=== PATIENT | male | born 1960 | race Caucasian/White ===

== ENCOUNTER 2018-06-18 19:46 | Emergency (ER) | payer MEDICARE, BC ==
--- NOTE | 2018-06-18 19:47 | ER Report ---
History and Physical Time Seen By MD: 19:47 HPI/ROS CHIEF COMPLAINT: Headache, altered mental status, chest tightness HISTORY OF PRESENT ILLNESS: 57-year-old male with a known history of coronary artery disease and history of neck surgery on chronic pain medication cured for eye Dr. Geronimo in [place]. Was seen in the ER earlier today and [place] for pain. Patient takes oxycodone 10 mg for chronic pain. He was discharged on Ativan from [place] earlier today, but its not helping. Patient's tremulous and appears to be withdrawing from opiates. He is confused. He doesn't know date, but knows his name and where he is in the hospital, but he is not aware that this is [facility] emergency Department. Patient's significant other denies d rugs or alcohol. Patient has a heavy odor of cigarette smoke on him. Patient was recently seen by his center sales and service associate and his extended release nitroglycerin was reduced. REVIEW OF SYSTEMS: Respiratory: No cough, no dyspnea. Cardiovascular: As above Gastrointestinal: No vomiting, no abdominal pain. Musculoskeletal: No back pain. Allergies: Coded Allergies: No Known Drug Allergies (Unverified , 06/18/18) Home Meds Active Scripts Hydromorphone Hcl (DILAUDID) 2 Mg Tablet, 2 MG PO Q4H PRN for PAIN, #12 Prov:PRIMITIVO ALFRED DO 06/18/18 Reported Medications Trazodone Hcl (TRAZODONE HCL) 100 Mg Tablet, 100 MG PO QHS, TAB 06/18/18 Tizanidine Hcl (TIZANIDINE HCL) 4 Mg Tablet, 4 MG PO unknown 06/18/18 Oxycodone/Acetaminophen (OXYCODONE/ACETAMINOPHEN 5MG/325 MG) 5 Mg/325 Mg Tab, MG PO PRN 06/18/18 [place]-3 Fatty Acids (FISH OIL CONCENTRATE) 1,000 Mg Capsule, 1000 MG PO QDAY, CAPSULE 06/18/18 Multivitamin (MULTI-VITAMIN DAILY) 1 Each Tablet, 1 EACH PO QDAY 06/18/18 Metoprolol Succinate (METOPROLOL SUCCINATE) 25 Mg Tab.er.24h, 1 TAB PO QDAY, TAB 06/18/18 Isosorbide Mononitrate (ISOSORBIDE MONONITRATE) 10 Mg Tablet, 5 MG PO TID 06/18/18 Gabapentin (GABAPENTIN) 300 Mg Capsule, 600 MG PO unknown, CAPSULE 06/18/18 Clonazepam (CLONAZEPAM) 1 Mg Tablet, 1 MG PO PRN, #6 TAB 06/18/18 Atorvastatin Calcium (LIPITOR) 40 Mg Tablet, 2 TAB PO QPM, TAB 06/18/18 Aspirin (ASPIRIN) 81 Mg Tab.chew, 81 MG PO QDAY, TAB.CHEW 06/18/18 Albuterol Sulfate 90 Mcg/Act (PROAIR HFA 90 MCG/ACT) 8.5 Gm Hfa.aer.ad, 2 PUFF IH Q6H, INHALER 06/18/18 Past Medical/Surgical History Coronary artery disease, status post 3 stents, COPD on O2 by 2 L at night, patient continues to smoke one pack per day. Degenerative disc disease of the cervical region Past surgical history: Status post cervical fusion 2 Reviewed Nurses Notes: Yes Old Medical Records Reviewed: Yes Constitutional Vital Sign - Last 24 Hours 06/18/18 06/18/18 06/18/18 06/18/18 19:46 19:51 19:52 20:00 Temp 98.6 Pulse ??? 80 Resp 23 B/P (MAP) 116/105 116/105 (109) 124/81 (95) Pulse Ox 86 O2 Delivery Room Air 06/18/18 06/18/18 06/18/18 06/18/18 20:01 20:02 20:13 20:13 Pulse 77 77 Resp 8 16 Pulse Ox 92 93 O2 Delivery Nasal Cannula O2 Flow Rate 2.0 2.0 06/18/18 06/18/18 06/18/18 06/18/18 20:16 20:30 20:31 20:46 Pulse 92 70 ??? Resp 14 6 B/P (MAP) ???/??? (9875) Pulse Ox 82 89 06/18/18 06/18/18 06/18/18 06/18/18 21:00 21:01 21:16 21:30 Pulse 69 72 Resp 9 15 B/P (MAP) 100/85 (90) 114/72 (86) Pulse Ox 91 93 06/18/18 06/18/18 06/18/18 06/18/18 21:31 21:36 21:51 22:00 Pulse 68 72 69 Resp 11 10 11 B/P (MAP) 102/78 (86) Pulse Ox 88 93 90 06/18/18 22:06 Pulse ??? Resp 12 Pulse Ox 93 Physical Exam Vital signs stable, room air pulse ox 86% on room air, afebrile, moderate distress, alert and oriented 2 General Appearance: The patient is alert, has no immediate need for airway protection and no signs of toxicity. Moderate distress, slightly pale appearing, skin warm and dry HEENT: Pupils equal and round no pallor or injection. TMs normal, oropharynx with heavy odor of EtOH, mild erythema Respiratory: There are no retractions, lungs are clear to auscultation. No wheezing or rails, decreased breath sounds throughout Cardiovascular: Regular rate and rhythm. Distant heart sounds, no murmur Gastrointestinal: Abdomen is soft and non tender, no masses, bowel sounds normal. Neurological: Alert and oriented 2, cranial nerves II through XII intact motor 5/5 all groups, sensory intact to light touch 4 Skin: Warm and dry, no rashes. Musculoskeletal: Neck is supple non tender. No JVD, no lymphadenopathy, no meningismus Extremities are nontender, nonswollen and have full range of motion. No edema, no calf tenderness DIFFERENTIAL DIAGNOSIS: After history and physical exam differential diagnosis was considered for altered mental status including but not limited to hypoglycemia, infectious process, electrolyte abnormality, head injury and intoxicants. Additionally,chest pain including but not limited to myocardial ischemia, pericarditis pulmonary embolus, chest wall pain, pleural inflammation and pulmonary infectious causes. Medical Decision Making Data Points Result Diagram: 06/18/18200506/18/181956 Laboratory Hematology Test 06/18/18 15:42 06/18/18 19:57 06/18/18 20:06 D-Dimer Quantitative (PE/DVT) 0.37 ug/ml (0-0.50) Sodium Level 145 mmol/L (137-145) Potassium Level 4.0 mmol/L (3.5-5.0) Chloride Level 103 mmol/L (98-107) Carbon Dioxide Level 30 mmol/L (22-30) Blood Urea Nitrogen 13 mg/dl (9-21) Creatinine 1.10 mg/dl (0.66-1.25) Glomerular Filtration Rate Calc > 60.0 Whole Blood Glucose 118 mg/DL (75-110) Random Glucose 114 mg/dl (75-110) Calcium Level 9.6 mg/dl (8.4-10.2) Total Bilirubin 0.1 mg/dl (0.2-1.3) Aspartate Amino Transf (AST/SGOT) 26 U/L (0-35) Alanine Aminotransferase (ALT/SGPT) 43 U/L (0-56) Alkaline Phosphatase 63 U/L (0-126) Troponin I < 0.012 ng/ml Total Protein 7.2 g/dl (6.3-8.2) Albumin 4.3 g/dl (3.5-5.0) Serum Alcohol < 10 mg/dl Red Blood Count 5.19 M/uL (4.00-5.60) Mean Corpuscular Volume 93.8 fL (80.0-96.0) Mean Corpuscular Hemoglobin 31.7 pg (26.0-33.0) Mean Corpuscular Hemoglobin Concent 33.8 g/dL (32.0-36.0) Red Cell Distribution Width 14.1 % (11.5-14.5) Mean Platelet Volume 8.4 fL (7.2-11.1) Neutrophils (%) (Auto) 53.2 % (39.4-72.5) Lymphocytes (%) (Auto) 34.6 % (17.6-49.6) Monocytes (%) (Auto) 7.8 % (4.1-12.4) Eosinophils (%) (Auto) 3.5 % (0.4-6.7) Basophils (%) (Auto) 0.9 % (0.3-1.4) Nucleated RBC Relative Count (auto) 0.1 /100WBC Neutrophils # (Auto) 5.4 K/uL (2.0-7.4) Lymphocytes # (Auto) 3.5 K/uL (1.3-3.6) Monocytes # (Auto) 0.8 K/uL (0.3-1.0) Eosinophils # (Auto) 0.4 K/uL (0.0-0.5) Basophils # (Auto) 0.1 K/uL (0.0-0.1) Nucleated RBC Absolute Count (auto) 0.01 K/uL Erythrocyte Sedimentation Rate 6 mm/HOUR (0-20) Lactate 2.3 mmol/L (0.7-2.1) Chemistry Test 06/18/18 15:42 06/18/18 19:57 06/18/18 20:06 D-Dimer Quantitative (PE/DVT) 0.37 ug/ml (0-0.50) Glomerular Filtration Rate Calc > 60.0 Whole Blood Glucose 118 mg/DL (75-110) Calcium Level 9.6 mg/dl (8.4-10.2) Total Bilirubin 0.1 mg/dl (0.2-1.3) Aspartate Amino Transf (AST/SGOT) 26 U/L (0-35) Alanine Aminotransferase (ALT/SGPT) 43 U/L (0-56) Alkaline Phosphatase 63 U/L (0-126) Troponin I < 0.012 ng/ml Total Protein 7.2 g/dl (6.3-8.2) Albumin 4.3 g/dl (3.5-5.0) Serum Alcohol < 10 mg/dl White Blood Count 10.2 k/uL (4.5-11.0) Red Blood Count 5.19 M/uL (4.00-5.60) Hemoglobin 16.4 g/dL (14.0-18.0) Hematocrit 48.7 % (42.0-52.0) Mean Corpuscular Volume 93.8 fL (80.0-96.0) Mean Corpuscular Hemoglobin 31.7 pg (26.0-33.0) Mean Corpuscular Hemoglobin Concent 33.8 g/dL (32.0-36.0) Red Cell Distribution Width 14.1 % (11.5-14.5) Platelet Count 256 K/uL (150-450) Mean Platelet Volume 8.4 fL (7.2-11.1) Neutrophils (%) (Auto) 53.2 % (39.4-72.5) Lymphocytes (%) (Auto) 34.6 % (17.6-49.6) Monocytes (%) (Auto) 7.8 % (4.1-12.4) Eosinophils (%) (Auto) 3.5 % (0.4-6.7) Basophils (%) (Auto) 0.9 % (0.3-1.4) Nucleated RBC Relative Count (auto) 0.1 /100WBC Neutrophils # (Auto) 5.4 K/uL (2.0-7.4) Lymphocytes # (Auto) 3.5 K/uL (1.3-3.6) Monocytes # (Auto) 0.8 K/uL (0.3-1.0) Eosinophils # (Auto) 0.4 K/uL (0.0-0.5) Basophils # (Auto) 0.1 K/uL (0.0-0.1) Nucleated RBC Absolute Count (auto) 0.01 K/uL Erythrocyte Sedimentation Rate 6 mm/HOUR (0-20) Lactate 2.3 mmol/L (0.7-2.1) Coagulation Test 06/18/18 19:57 D-Dimer Quantitative (PE/DVT) 0.37 ug/ml Toxicology Test 06/18/18 19:57 Serum Alcohol < 10 mg/dl Microbiology Microbiology Date/Time Source Procedure Growth Status 06/18/18 20:06 Blood Peripheral Draw Blood Culture - Preliminary NO GROWTH AFTER 2 DAYS, REINCUBATED Resulted 06/18/18 19:57 Blood Peripheral Draw Blood Culture - Preliminary NO GROWTH AFTER 2 DAYS, REINCUBATED Resulted EKG/Imaging EKG Interpretation 12 lead EK Rhythm: normal sinus rhythm (patient with a history of 3 stents being placed.) [place]: normal QRS: normal ST segments: normal, no old EKGs for comparison Imaging X-ray: Single view portable chest x-ray was obtained. I viewed the images myself on the PACS system. My interpretation of the images is: No infiltrate, no effusion, normal mediastinum. The radiologist interpretation had no clinically significant variation from this interpretation. Results: CT scan of the head without contrast was obtained. The results of the study are Study: CT scan of the brain without intravenous contrast. Indication:Altered metal status Comparison study:None Technique: Multiple axial images were obtained through the brain without the use of intravenous contrast. One of the following dose optimization techniques was utilized in the performance of this exam: Automated exposure control; adjustment of the mA an d/or kV according to the patient's size; or use of an iterative reconstruction technique. Specific details can be referenced in the facility's radiology CT exam operational policy. The examination demonstrates no evidence of acute intracranial hemorrhage. There is no evidence of extra-axial collection or hydrocephalus. There is no evidence of intracranial mass lesion. There patchy areas of low density within the periventricular white matter. This is most consistent with chronic ischemia. There is no evidence of disruption of the peripheral romero-white junction. The bony structures are unremarkable. IMPRESSION: No acute intracranial abnormality identified. There are patchy areas of low density within the periventricular white matter. This is most consistent with chronic ischemia. The study was read by the radiologist. I viewed the images myself on the PACS system. ED Course/Re-evaluation Clinical Indication for ER IV: IV Access ED Course Patient was admitted to an examination room. H&P was done. The differential diagnoses was considered. Patient with altered mental status and dizziness. He doesn't know the date. She was seen and [place] [facility] this morning. He was discharged home on Ativan for shakiness. Patient's on chronic cardiac management. He was on 30 mg of nitroglycerin 3 times a day per cardiology. He was reduced to 5 mg 3 times a day recently. Patient's also on oxycodone 10 mg he states he takes 2-3 per day. Patient presents in pain, appearing his is withdrawing from opiates. He gets some chest tightness and a headache. He's had no fever, no rhinitis, no sore throat. He denies meningismus. Patient has 2 cervical fusions, which is the source of his chronic pain. Patient's treated with IV Zofran and Dilaudid. Diagnostic studies are performed. His EKG is unremarkable. His white blood cell counts normal at 10,000. There is no left shift. Sedimentation rate is normal. A head CT is performed which is unremarkable except for deep white matter disease, appearing chronic in nature. Patient complaining of dizziness. I suspect he is having withdrawal from his high doses of nitroglycerin. Decision to Disposition Date: Jun 18, 2018 Decision to Disposition Time: 21:41 Depart Departure Latest Vital Signs Vital Signs Date Time Temp Pulse Resp B/P (MAP) Pulse Ox O2 Delivery O2 Flow Rate FiO2 06/18/18 22:06 ??? 12 93 06/18/18 22:00 102/78 (86) 06/18/18 20:13 Nasal Cannula 2.0 06/18/18 19:51 98.6 Impression: Primary Impression: Altered mental status, unspecified Additional Impressions: Neck pain S/P cervical spinal fusion Coronary artery disease Condition: Improved Disposition: HOME OR SELF-CARE New Scripts Hydromorphone Hcl (DILAUDID) 2 Mg Tablet 2 MG PO Q4H PRN for PAIN, #12 Prov: PRIMITIVO ALFRED DO 06/18/18 Patient Instructions: Acute Headache (ED), Altered Mental Status (ED), Neck Pain (ED) Additional Instructions: Follow-up with your primary care on Thursday or Thursday Problem Qualifiers Primary Impression: Altered mental status, unspecified Altered mental status type: disorientation Qualified Codes: R41.0 - Disorientation, unspecified Additional Impressions: Coronary artery disease Coronary Disease-Associated Artery/Lesion type: unspecified vessel or lesion type Elem vs. transplanted heart: [place] heart Associated angina: angina presence unspecified Qualified Codes: I25.10 - Atherosclerotic heart disease of [place] coronary artery without angina pectoris PRIMITIVO ALFRED DO Jun 18, 2018 19:47
[2018-06-18] MEDS ORDERED: NS(*) 0.9% 1000 ML BAG 1,000 ML IV ONE (19:53)
[2018-06-18] MEDS ORDERED: ALBUTEROL/IPRATROPIUM 3 ML NEB NEB ONE (20:05)
[2018-06-18] MEDS ORDERED: HYDROMORPHONE HCL 1 MG/ML SYRINGE IVP ONE ×2 (20:15→21:40)
[2018-06-18] MEDS ORDERED: ONDANSETRON 4 MG/2 ML VIAL IVP ONE (20:15)
[2018-06-18 20:40] LABS: PLATELET COUNT, AUTOMATED 256 K/uL (150-450)
--- NOTE | 2018-06-18 20:43 | EKG ---
FACILITY: [facility] - [place] PATIENT NAME: DEBRA ARIAS : [id number] MR: [id number] V: [id number] EXAM DATE: ORDERING PHYSICIAN: PRIMITIVO ALFRED TECHNOLOGIST: ELTON Test Reason : CHEST TIGHT Blood Pressure : / mmHG Vent. Rate : 077 BPM Atrial Rate : 077 BPM P-R Int : 138 ms QRS Dur : 090 ms QT Int : 378 ms P-R-T Axes : 059 055 048 degrees QTc Int : 427 ms Normal sinus rhythm Normal ECG Confirmed by SHERRY TORRES ([id number]) on 06/18/2018 9:01:39 PM Referred By: AUBRIE Confirmed By:SHERRY TORRES
[2018-06-18] MEDS ORDERED: ALBU8.5H IH (21:35)
[2018-06-18] MEDS ORDERED: PER PO (21:35)
[2018-06-18] MEDS ORDERED: GABA-549 PO (21:35)
[2018-06-18] MEDS ORDERED: TIZA-128 PO (21:35)
[2018-06-18] MEDS ORDERED: METO25TA23 PO (21:35)
[2018-06-18] MEDS ORDERED: ATOR40TA24 PO (21:35)
[2018-06-18] MEDS ORDERED: CLON-333 PO (21:35)
[2018-06-18] MEDS ORDERED: MULT1TAB54 PO (21:35)
[2018-06-18] MEDS ORDERED: OMEG100027 PO (21:35)
[2018-06-18] MEDS ORDERED: TRAZ100T31 PO (21:35)
[2018-06-18] MEDS ORDERED: ASPI81TA94 PO (21:35)
[2018-06-18] MEDS ORDERED: ISOS10TA63 PO (21:35)
--- NOTE | 2018-06-18 21:39 | RADIOLOGY IMAGING REPORT ---
FACILITY: [facility] - [place] PATIENT NAME: Kingsley Mcgee : 1960 MR: [id number] V: [id number] EXAM DATE: ORDERING PHYSICIAN: PRIMITIVO ALFRED TECHNOLOGIST: Location: [facility] [place] Patient: Kingsley Mcgee : 1960 Visit/Account:[id number] Date of Sevice: 06/18/2018 Study: CT scan of the brain without intravenous contrast. Indication:Altered metal status Comparison study:None Technique: Multiple axial images were obtained through the brain without the use of intravenous contr ast. One of the following dose optimization techniques was utilized in the performance of this exam: Autom ated exposure control; adjustment of the mA and/or kV according to the patient's size; or use of an i terative reconstruction technique. Specific details can be referenced in the facility's radiology C T exam operational policy. The examination demonstrates no evidence of acute intracranial hemorrhage. There is no evidence of ex tra-axial collection or hydrocephalus. There is no evidence of intracranial mass lesion. There patchy areas of low density within the periventricular white matter. This is most consistent wi th chronic ischemia. There is no evidence of disruption of the peripheral romero-white junction. The bony structures are unremarkable. IMPRESSION: No acute intracranial abnormality identified. There are patchy areas of low density withi n the periventricular white matter. This is most consistent with chronic ischemia. Report Dictated By: Zach Cristina at 06/18/2018 9:27 PM Report E-Signed By: Zach Cristina at 06/18/2018 9:35 PM WSN:[id number]
[2018-06-18] MEDS ORDERED: HYDROmorphone 2 MG TAB TH 2 TAB/BOTTLE PO ONE (21:40)
--- NOTE | 2018-06-18 21:40 | RADIOLOGY IMAGING REPORT ---
FACILITY: [facility] - [place] PATIENT NAME: Kingsley Mcgee : 1960 MR: [id number] V: [id number] EXAM DATE: ORDERING PHYSICIAN: PRIMITIVO ALFRED TECHNOLOGIST: Location: [facility] Patient: Kingsley Mcgee : 1960 Visit/Account:[id number] Date of Sevice: 06/18/2018 Study: Single portable view of the chest. Indication: Altered mental status Comparison study: None. Technique: Single AP view of the chest demonstrates no evidence of acute infiltrate. There is no evid ence of pleural effusion or pneumothorax. The mediastinal, cardiac, and diaphragmatic contours are un remarkable. The patient is status post cervical spine surgery. IMPRESSION: Unremarkable chest. Report Dictated By: Zach Cristina at 06/18/2018 9:35 PM Report E-Signed By: Zach Cristina at 06/18/2018 9:36 PM WSN:[id number]
[2018-06-18] MEDS ORDERED: HYDR2TAB74 PO (21:45)
[2018-06-18 22:00] VITALS: BP 102/78
[2018-06-18] MEDS ORDERED: MECLIZINE HCL 25 MG TAB PO ONE (22:20)
== END 2018-06-18 22:37 | disposition home or self-care (01) ==
LOC: ER 19:51
DX: R41.0 Disorientation, unspecified (principal); I25.10 Atherosclerotic heart disease of native coronary artery without angina pectoris; M54.2 Cervicalgia; R42 Dizziness and giddiness; Z95.1 Presence of aortocoronary bypass graft; G47.33 Obstructive sleep apnea (adult) (pediatric)
CPT/HCPCS: 36416; 70450; 71045; 82948; 83605; 84443; 84484; 85025; 85379; 85651; 87040; 93005; 94640; 96361; 96374; 96375; 99284; A9270; G0480; J1170; J2405; J7030; J7620; J8597; 80320; 82040; 82247; 82310; 82374; 82435; 82565; 82947; 84075; 84132; 84155; 84295; 84450; 84460; 84520

== ENCOUNTER → 2018-10-06 | Outpatient (CLI) | payer MEDICARE, BC ==
[~2018-10-06] MED LIST: ALBU8.5H IH; ASPI81TA94 PO; ATOR40TA24 PO; CLON-333 PO; GABA-549 PO; HYDR2TAB74 PO; ISOS10TA63 PO; METO25TA23 PO; MULT1TAB54 PO; OMEG100027 PO; PER PO; TIZA-128 PO; TRAZ100T31 PO
[2018-10-06 10:51] LABS: INR 0.98
[2018-10-06 11:13] LABS: LDL CHOLESTEROL 82 mg/dl
== END ==
LOC: LAB 10:19
PROVIDERS: ATTEND Internal Medicine Cardiovascular Disease
DX: I25.10 Atherosclerotic heart disease of native coronary artery without angina pectoris (principal)
CPT/HCPCS: 36415; 82310; 82374; 82435; 82465; 82565; 82947; 83718; 84132; 84295; 84478; 84520; 85027; 85610